=== PATIENT | male | born 1945 | race Caucasian/White ===

== ENCOUNTER → 2019-11-10 | Outpatient (CLI) | payer MEDICARE ==
[~2019-11-10] MED LIST: ASPIRIN81 MG PO; FENOGLIDE40 MG PO; GLIMEPIRIDE PO; KOMBIGLYZE XR1 EAC1 PO; METFORMIN HCL500 M2 PO; PRAVASTATIN SOD40 MG PO; SYNTHROID100 MCG PO; [UNRECOGNIZED DRUG - OTHER] PO
--- NOTE | 2019-11-10 13:30 | Diagnostic Imaging Report ---
EXAMINATION: SP LUMBAR, COMPLETE MIN 4VW INDICATION: Lower back pain COMPARISON: None FINDINGS: AP, lateral and oblique radiographs of the lumbar spine were obtained. No acute fracture or dislocation. Vertebral body heights are well-maintained. Alignment is anatomic. Mild multilevel degenerative changes with disc space narrowing and osteophyte formation. Oblique images demonstrate no evidence of spondylolysis. Scattered atherosclerotic arterial calcifications. Phlebolith in the pelvis. IMPRESSION: No acute osseous injury. 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 Signed by: Ave Molina MD on 11/10/2019 1:27 PM
== END ==
LOC: RAD 12:45
DX: M54.5 Low back pain (principal)
CPT/HCPCS: 72110

== ENCOUNTER 2020-05-21 07:00 | Outpatient (RCR) | payer MEDICARE | END 2020-05-22 | LOC: PT 07:00 | PROVIDERS: ATTEND Specialist | DX: M75.111 Incomplete rotator cuff tear or rupture of right shoulder, not specified as traumatic (principal); S43.431A Superior glenoid labrum lesion of right shoulder, initial encounter ==

== ENCOUNTER 2020-06-21 07:00 | Outpatient (RCR) | payer MEDICARE | END 2020-06-22 | LOC: PT 07:00 | PROVIDERS: ATTEND Specialist | DX: M75.111 Incomplete rotator cuff tear or rupture of right shoulder, not specified as traumatic (principal); S43.431A Superior glenoid labrum lesion of right shoulder, initial encounter ==

== ENCOUNTER 2020-07-05 07:00 | Outpatient (RCR) | payer MEDICARE | END 2020-07-22 | LOC: PT 07:00 | PROVIDERS: ATTEND Specialist | DX: M75.111 Incomplete rotator cuff tear or rupture of right shoulder, not specified as traumatic (principal); S43.431A Superior glenoid labrum lesion of right shoulder, initial encounter ==

== ENCOUNTER → 2021-12-30 | Outpatient (CLI) | payer MEDICARE | LOC: CT 10:41 | DX: H57.02 Anisocoria (principal); Z79.01 Long term (current) use of anticoagulants; Z91.81 History of falling | CPT/HCPCS: 70450 ==